=== PATIENT | male | born 1995 | race African-American/Black ===

== ENCOUNTER 2019-02-14 10:40 | Emergency (ER) | payer SELFPAY ==
[~2019-02-14] VITALS: Ht 185.4 cm; Wt 88.0 kg
[2019-02-14 11:06] VITALS: BP 140/81
[2019-02-14] MEDS: LIDOCAINE HCL 1% 20ML VIAL (Pyxis) INJ INFIL ONE (12:50)
[2019-02-14] MEDS: CEFTRIAXONE SODIUM 250 MG/VIAL IM ONE (12:50)
[2019-02-14] MEDS: AZITHROMYCIN 500 MG TABLET PO ONE (12:50)
[2019-02-14 13:08] LABS: CLARITY URINE CLEAR (CLEAR); COLOR URINE YELLOW (YELLOW); KETONES URINE NEGATIVE (NEGATIVE); LEUKOCYTE ESTERASE URINE 1+ (NEGATIVE); NITRITE URINE NEGATIVE (NEGATIVE); OCCULT BLOOD URINE NEGATIVE (NEGATIVE); PROTEIN URINE NEGATIVE (NEGATIVE); SPECIFIC GRAVITY URINE 1.024 (1.005-1.030)
== END 2019-02-14 13:01 | disposition home or self-care (01) ==
LOC: ER 10:40
DX: A64 Unspecified sexually transmitted disease (principal)
CPT/HCPCS: 81003; 96372; 99283; J0696; J3490

== ENCOUNTER 2019-09-28 10:29 | Emergency (ER) | payer MEDICAID ==
[~2019-09-28] VITALS: Ht 185.4 cm; Wt 93.0 kg
[2019-09-28 10:41] VITALS: BP 142/85
[2019-09-28] MEDS ORDERED: AZITHROMYCIN 500 MG TABLET PO ONE (11:30)
[2019-09-28] MEDS ORDERED: LIDOCAINE HCL/PF 1% 10 MG/ML 5ML VIAL IJ ONE (11:30)
[2019-09-28] MEDS ORDERED: CEFTRIAXONE SODIUM 250 MG/VIAL IM ONE (11:30)
[2019-09-28 11:48] LABS: CLARITY URINE CLEAR (CLEAR); COLOR URINE YELLOW (YELLOW); KETONES URINE NEGATIVE (NEGATIVE); LEUKOCYTE ESTERASE URINE 1+ (NEGATIVE); NITRITE URINE NEGATIVE (NEGATIVE); OCCULT BLOOD URINE NEGATIVE (NEGATIVE); PROTEIN URINE NEGATIVE (NEGATIVE); SPECIFIC GRAVITY URINE 1.022 (1.005-1.030)
== END 2019-09-28 12:59 | disposition home or self-care (01) ==
LOC: ER 12:55
DX: A64 Unspecified sexually transmitted disease (principal)
CPT/HCPCS: 81003; 96372; 99283; J0696; J3490

== ENCOUNTER 2021-02-15 17:44 | Emergency (ER) | payer MEDICAID ==
[~2021-02-15] VITALS: Ht 185.4 cm; Wt 95.0 kg
[2021-02-15 17:49] VITALS: BP 136/91
== END 2021-02-15 18:50 | disposition left against medical advice (07) ==
LOC: ER 17:44
DX: Z53.21 Procedure and treatment not carried out due to patient leaving prior to being seen by health care provider (principal)

== ENCOUNTER 2021-04-20 20:42 | Emergency (ER) | payer MEDICAID, OTHER ==
[~2021-04-20] VITALS: Ht 185.4 cm; Wt 93.0 kg
[2021-04-20 20:45] VITALS: BP 144/82
[2021-04-21] MEDS ORDERED: HYDROCODONE/ACETAMINOPHEN 5/325MG TABLET PO ONE (00:15)
[2021-04-21] MEDS ORDERED: LIDOCAINE HCL/PF 1% 10 MG/ML 5ML VIAL INFIL ONE (00:15)
[2021-04-21] MEDS ORDERED: BACITRACIN ZINC OINT UDPKT TOP ONE (00:15)
[2021-04-21] MEDS ORDERED: LIDOCAINE HCL 1% 20ML VIAL (Pyxis) INJ INFIL NR (00:30)
[2021-04-21] MEDS ORDERED: SULF1TAB48 MT (01:13)
[2021-04-21] MEDS ORDERED: CEPH500C2 MT (01:13)
[2021-04-21] MEDS ORDERED: TETANUS AND DIPHTHERIA TOX/PF 0.5ML SYR (ADULT) IM ONE (01:45)
== END 2021-04-21 01:45 | disposition home or self-care (01) ==
LOC: ER 20:42
DX: L02.31 Cutaneous abscess of buttock (principal)
CPT/HCPCS: 10060; 99283; A4217; J3490; Z7610; 90714

== ENCOUNTER 2023-10-13 09:09 | Emergency (ER) | payer MEDICAID, OTHER ==
[~2023-10-13] VITALS: Ht 185.4 cm; Wt 97.5 kg
[~2023-10-13 09:09] MED LIST: CEPH500C2 MT; DOXY100C5 MT; SULF1TAB48 MT
[2023-10-13 09:20] VITALS: BP 140/89; PULSE 85; TEMP 98.2; O2SAT 97
[2023-10-13] MEDS: IBUPROFEN 600MG TABLET PO ONE (09:45)
[2023-10-13 10:09] VITALS: RESP 16
[2023-10-13] MEDS: OXYCODONE HCL/ACETAMINOPHEN 5/325MG TABLET PO ONE (10:09)
[2023-10-13] MEDS ORDERED: IBUP-2030 MT (12:16)
[2023-10-13] MEDS ORDERED: IOHEXOL-350 100 ML BOTTLE ONE (13:50)
== END 2023-10-13 12:28 | disposition home or self-care (01) ==
LOC: ER 10:17
DX: S82.892A Other fracture of left lower leg, initial encounter for closed fracture (principal); S82.832A Other fracture of upper and lower end of left fibula, initial encounter for closed fracture; X58.XXXA Exposure to other specified factors, initial encounter; Y93.89 Activity, other specified; Y92.89 Other specified places as the place of occurrence of the external cause; Y99.8 Other external cause status
CPT/HCPCS: 73610; 73630; 73700; 29515; 99284; Q9967; Z7610

== ENCOUNTER 2023-10-22 18:51 | Emergency (ER) | payer MEDICAID ==
[~2023-10-22] VITALS: Ht 188 cm; Wt 91.0 kg
[~2023-10-22 18:51] MED LIST changes: +IBUP-2030 MT
[2023-10-22 19:01] VITALS: BP 129/84; PULSE 89; RESP 18; TEMP 98.5; O2SAT 97
== END 2023-10-22 22:01 | disposition left against medical advice (07) ==
LOC: ER 18:58
DX: M79.673 Pain in unspecified foot (principal); Z53.21 Procedure and treatment not carried out due to patient leaving prior to being seen by health care provider

== ENCOUNTER 2023-12-03 17:34 | Emergency (ER) | payer MEDICAID ==
[~2023-12-03] VITALS: Ht 185.4 cm; Wt 100.0 kg
[2023-12-03 17:51] VITALS: BP 120/87; PULSE 87; RESP 18; TEMP 98.2; O2SAT 100
== END 2023-12-03 21:01 | disposition home or self-care (01) ==
LOC: ER 17:34
DX: S92.902A Unspecified fracture of left foot, initial encounter for closed fracture (principal); S82.892A Other fracture of left lower leg, initial encounter for closed fracture; Z79.899 Other long term (current) drug therapy; X58.XXXA Exposure to other specified factors, initial encounter; Y93.89 Activity, other specified; Y92.89 Other specified places as the place of occurrence of the external cause; Y99.8 Other external cause status
CPT/HCPCS: 73610; 73630; 99284

== ENCOUNTER 2023-12-21 12:52 | Emergency (ER) | payer MEDICAID ==
[~2023-12-21] VITALS: Ht 182.9 cm; Wt 95.0 kg
[2023-12-21 12:59] VITALS: O2SAT 100
[2023-12-21 13:05] VITALS: BP 119/79; PULSE 87; RESP 16; TEMP 98.4; O2SAT 96
== END 2023-12-21 14:55 | disposition home or self-care (01) ==
LOC: ER 12:52
DX: S82.402A Unspecified fracture of shaft of left fibula, initial encounter for closed fracture (principal); X58.XXXA Exposure to other specified factors, initial encounter; Y93.89 Activity, other specified; Y92.89 Other specified places as the place of occurrence of the external cause; Y99.8 Other external cause status
CPT/HCPCS: 99281